=== PATIENT | female | born 1960 | race American Indian/Alaskan Native ===

== ENCOUNTER 2020-07-28 08:00 | Outpatient (CLI) | payer OTHER | END 2020-07-28 08:30 | disposition home or self-care (01) | LOC: PPH VACUNA 08:00 | DX: Z23 Encounter for immunization (principal) ==

== ENCOUNTER 2021-04-06 10:58 | Outpatient (CLI) | payer OTHER | END 2021-04-06 11:05 | disposition home or self-care (01) | LOC: RAD 10:58 | PROVIDERS: ATTEND Orthopaedic Surgery | DX: M25.561 Pain in right knee (principal); M25.542 Pain in joints of left hand ==